=== PATIENT | female | born 1965 | race Caucasian/White ===

== ENCOUNTER → 2016-07-03 | Outpatient (CLI) | payer MEDICARE, OTHER ==
--- NOTE | 2016-07-05 11:48 | MM ---
Reason for exam: screening (asymptomatic). Last mammogram was performed 2 years and 1 month ago. History: Patient is postmenopausal. Family history of breast cancer in paternal cousin at age 58. Physical Findings: A clinical breast exam by your physician is recommended on an annual basis and results should be correlated with mammographic findings. MG 3D Screening Mammo W/Cad Bilateral CC and MLO view(s) were taken. Prior study comparison: June 02, 2014, bilateral MG screening mammo w CAD. September 26, 2012, bilateral digital screening mammo w/CAD. There are scattered fibroglandular densities. No significant changes when compared with prior studies. ASSESSMENT: Negative, BI-RAD 1 RECOMMENDATION: Routine screening mammogram of both breasts in 1 year.
== END ==
LOC: RADMAMWWP 11:22
PROVIDERS: ATTEND Family Medicine
DX: Z12.31 Encounter for screening mammogram for malignant neoplasm of breast (principal)
CPT/HCPCS: 77063; 77067; G0202

== ENCOUNTER → 2018-01-01 | Outpatient (CLI) | payer MEDICARE, OTHER ==
--- NOTE | 2018-01-01 13:33 | MR ---
EXAMINATION TYPE: MR lumbar spine wo con DATE OF EXAM: 01/01/2018 COMPARISON: HISTORY: Low back pain TECHNIQUE: Multiplanar, multisequence images of the lumbar spine were acquired. L1-L2: Normal disc appearance without desiccation. No herniation, protrusion or disc bulging. No ca nal stenosis is present. Foramina are patent bilaterally. L2-L3: Normal disc appearance without desiccation. No herniation, protrusion or disc bulging. No ca nal stenosis is present. Foramina are patent bilaterally. L3-L4: Facet arthropathy hypertrophy of ligamentum flavum causes some posterior lateral mass effect o n the thecal sac. No significant central canal stenosis. No significant foraminal encroachment. L4-L5: Broad-based posterior disc bulge causes mild anterior mass effect on the thecal sac. Facet art hropathy with hypertrophic change of the ligamentum flavum results in a trefoil appearance of the the rafa sac. Circumferential extension of endplate disc complex encroaches mildly on the foramina. L5-S1: There is facet arthropathy change present. No significant central stenosis. Broad-based utilization supervisor ior disc bulge contacts anterior thecal sac, lateral extension endplate disc complex encroaches somew hat on the neural foramina greater on the right than on the left. Lumbar segments are intact. No paraspinal masses are identified. Conus medullaris has a normal appe arance. Lumbar vertebral bodies show preserved height and alignment, there is a minimal retrolisthesi s grade 1 L5-S1. Multilevel spondylosis with minimal endplate discogenic marrow signal changes are pr esent. Some loss of disc height signal present L5-S1 and to lesser extent L3-4 compatible disc desicc ation and degenerative disc disease. Probable hemangioma noted within the left aspect of the L5 verte bral body hyperintensity noted on T1 and T2-weighted sequences. Focal lesion showing low signal on T2 -weighted sequences, possibly increased T1 noted within the left adrenal gland measuring [address] is mild spinal curvature. IMPRESSION: Degenerative disc disease and facet arthropathy. Findings within the left adrenal gland may represent an adenoma, dedicated adrenal MRI could be performed for better evaluation.
== END | disposition home or self-care (01) ==
LOC: RADMRIMAIN 12:21
PROVIDERS: ATTEND Family Medicine
DX: M51.16 Intervertebral disc disorders with radiculopathy, lumbar region (principal); M46.86 Other specified inflammatory spondylopathies, lumbar region; Z87.310 Personal history of (healed) osteoporosis fracture
CPT/HCPCS: 72148

== ENCOUNTER → 2018-02-28 | Outpatient (CLI) | payer MEDICARE, OTHER | LOC: RADMRIMAIN 11:01 | PROVIDERS: ATTEND Family Medicine | DX: Z53.9 Procedure and treatment not carried out, unspecified reason (principal) ==

== ENCOUNTER → 2018-03-31 | Outpatient (CLI) | payer MEDICARE, OTHER ==
--- NOTE | 2018-03-31 20:50 | MR ---
EXAMINATION TYPE: MR abdomen wo/w con DATE OF EXAM: 03/31/2018 COMPARISON: Correlation MRI lumbar spine 01/01/[address] 03/05/2014 HISTORY: 52-year-old female benign neoplasm of left adrenal gland Technique: Multiplanar, multisequence images of the abdomen were obtained before and after administra tion of 9.5 mL intravenous Gadavist gadolinium contrast. FINDINGS: In retrospect, a 1.4 cm low-density nodule was present on the patient's 03/05/2014 CT. Of the present exam demonstrates a 1.8 cm left adrenal nodule which drastically drops in signal on out of phase T1-w eighted sequence. Liver is enlarged measuring 20.4 cm craniocaudal. There is some signal loss of the liver as well sugg esting mild fatty infiltration. Gallbladder surgically absent. Bile duct mildly dilated to 8 mm, acceptable given postcholecystectom y status. Portal venous system is patent. Right adrenal gland, left kidney, spleen, and pancreas appear within normal limits. Subcentimeter T2 hyperintensity upper pole right kidney likely a cyst. No upper abdominal lymphadenopathy, ascites fluid, or gross bowel abnormality seen. Fatty matrix hemangioma within a lower thoracic vertebral body. Some focal strandy atelectasis or scar suggested at the base of the right lobe. IMPRESSION: 1. A 1.8 cm nodule in the left adrenal gland drastically loses signal on out of phase sequence compat ible with a benign, lipid rich adrenal adenoma. In retrospect, a 1.4 cm nodule was present on the pat ient's 2013 CT. This shows minimal increase in size over 4 years. 2. Hepatomegaly (20.4 cm) with additional signal loss suggesting mild fatty infiltration of the liver .
== END | disposition home or self-care (01) ==
LOC: RADMRIMAIN 10:04
PROVIDERS: ATTEND Family Medicine
DX: D35.02 Benign neoplasm of left adrenal gland (principal)
CPT/HCPCS: 74183; A9585

== ENCOUNTER → 2018-05-02 | Outpatient (CLI) | payer MEDICARE, OTHER ==
--- NOTE | 2018-05-02 17:03 | BD ---
EXAMINATION TYPE: Axial Bone Density DATE OF EXAM: 05/02/2018 COMPARISON: 09/26/2012 CLINICAL HISTORY: 52-year-old female postmenopausal screening Height: 64.5 IN Weight: 216 LBS FRAX RISK QUESTIONS: Secondary Osteoporosis: 5. Chronic liver disease: YES FATTY LIVER DISEASE Current Tobacco Use: YES RISK FACTORS HISTORY OF: Spine Fracture: YES L1; L3; L4 When: 2012 Family History of Osteoporosis: YES MOTHER Active: YES Diet low in dairy products/other sources of calcium: YES Postmenopausal woman: AGE 43 MEDICATIONS: Additional Medications: VIT D, TIZANIDINE, TOPROL, CHOLESTEROL MEDS, OXYCOTIN, MULTI VIT, MELATONIN, BENADRYL, NEXIUM, PREVACID EXAM MEASUREMENTS: Bone mineral densitometry was performed using the [employer] System. Bone mineral density about the R hip (g/cm2): 0.872 Bone mineral density about the L hip (g/cm2): 0.927 T Score values are as follows: -----R Neck: -1.2 -----L Neck: -0.8 -----R Total: 0.0 -----L Total: 0.5 Bone mineral density has: Decreased 11.0% since study of: 09/26/2012 Bone mineral density about the L Wrist (g/cm2): 0.666 T Score values are as follows: -----Dist. R+U: 0.8 -----Prox. R+U: -0.7 -----Radius total: -0.1 Bone mineral density BASELINE IMPRESSION: Osteopenia (T Score between -2.5 and -1). There is slightly increased risk of fracture and the patient may be considered for treatment. Re-Screen 2-5 years. NOTE: T-SCORE=SD OF THE YOUNG ADULT MEAN.
--- NOTE | 2018-05-06 07:01 | MM ---
Reason for exam: screening (asymptomatic). Last mammogram was performed 1 year and 10 months ago. History: Patient is postmenopausal. Family history of breast cancer in paternal cousin at age 58. Physical Findings: A clinical breast exam by your physician is recommended on an annual basis and results should be correlated with mammographic findings. MG 3D Screening Mammo W/Cad Bilateral CC and MLO view(s) were taken. Prior study comparison: July 03, 2016, bilateral MG 3d screening mammo w/cad. June 02, 2014, bilateral MG screening mammo w CAD. There are scattered fibroglandular densities. No suspicious abnormality. No significant changes when compared with prior studies. ASSESSMENT: Negative, BI-RAD 1 RECOMMENDATION: Routine screening mammogram of both breasts in 1 year.
== END | disposition home or self-care (01) ==
LOC: RADMAMWWP 12:53
PROVIDERS: ATTEND Family Medicine
DX: Z12.31 Encounter for screening mammogram for malignant neoplasm of breast (principal); M85.851 Other specified disorders of bone density and structure, right thigh
CPT/HCPCS: 77063; 77067; 77080

== ENCOUNTER → 2019-01-13 | Outpatient (CLI) | payer MEDICARE, OTHER ==
--- NOTE | 2019-01-13 09:02 | US ---
EXAMINATION TYPE: US abdomen complete DATE OF EXAM: 01/13/2019 COMPARISON: NONE CLINICAL HISTORY: R31.9 Hematuria,R10.811 Right Upper Quad tenderness. Hematuria. GB removed. RUQ pa in. EXAM MEASUREMENTS: Liver Length: 19.6 cm CHD: 0.6 cm Spleen: 10.3 cm Right Kidney: 9.7 x 5.7 x 4.7 cm Left Kidney: 8.9 x 4.9 x 4.7 cm Pancreas: Limited by bowel gas. Liver: appears enlarged in size and increased echogenicity. Gallbladder: Surgically absent Evidence for sonographic Monson's sign: neg CBD: Obscured by overlying bowel gas CHD: wnl Spleen: wnl Right Kidney: wnl Left Kidney: wnl Upper IVC: wnl Abd Aorta: No AAA visualized IMPRESSION: 1. Hepatomegaly. Pattern to the liver is nonspecific and be seen with hepatic steatosis. Correlate wi th liver function studies to exclude hepatitis or hepatocellular disease. 2. Postcholecystectomy.
--- NOTE | 2019-01-13 18:38 | P.STRESS ---
- Stress Test Note Stress Test Results/Findings: Exam Performed: stress echo exercise Exam Date: 01/13/19 Reason for Exam: Chest Pain Height: 5 ft 4 in Weight: 92.986 kg Protocol: Hany Stage: 2 Duration of Exercise: 4:14 Resting Heart Rate: 56 Resting Blood Pressure: 111/77 Maximum Achieved Heart Rate: 148 Maximum Achieved Blood Pressure: 156/50 85% PMHR: 140 100% PMHR: 165 METS: 5.6 Technologist Comment: Stress Test Results/Findings: This is a 53-year-old female who was admitted to the hospital with chest pain. Patient has history of smoking and hypercholesteremia. Her EKGs and cardiac enzymes are negative. Stress data: Blood pressure at rest is 111/77 with pulse rate of 56. Baseline EKG showed sinus rhythm, normal DE interval, QRS duration with mild nonspecific ST-T changes. Patient walked on the Hany protocol for about 4 minutes and 14 seconds achieving a maximal heart rate 148 with blood pressure was 156/50. EKGs taken during and after exercise did not reveal any significant changes from the baseline. Echo data: Baseline echo images showed normal wall motion and thickening. Exercise echo images showed augmentation of wall motion and thickening in all the segments. Final impression: #1. Negative stress test #2. Negative stress echo
--- NOTE | 2019-01-14 09:14 | ECHOS ---
Stress Test Results/Findings: Exam Performed: stress echo exercise Exam Date: 01/13/19 Reason for Exam: Chest Pain Height: 5 ft 4 in Weight: 92.986 kg Protocol: Hany Stage: 2 Duration of Exercise: 4:14 Resting Heart Rate: 56 Resting Blood Pressure: 111/77 Maximum Achieved Heart Rate: 148 Maximum Achieved Blood Pressure: 156/50 85% PMHR: 140 100% PMHR: 165 METS: 5.6 Technologist Comment: Stress Test Results/Findings: This is a 53-year-old female who was admitted to the hospital with chest pain. Patient has history of smoking and hypercholesteremia. Her EKGs and cardiac enzymes are negative. Stress data: Blood pressure at rest is 111/77 with pulse rate of 56. Baseline EKG showed sinus rhythm, normal NV interval, QRS duration with mild nonspecific ST-T changes. Patient walked on the Hany protocol for about 4 minutes and 14 seconds achieving a maximal heart rate 148 with blood pressure was 156/50. EKGs taken during and after exercise did not reveal any significant changes from the baseline. Echo data: Baseline echo images showed normal wall motion and thickening. Exercise echo images showed augmentation of wall motion and thickening in all the segments. Final impression: #1. Negative stress test #2. Negative stress echo MTDD
== END | disposition home or self-care (01) ==
LOC: RADUSMAIN 08:10
PROVIDERS: ATTEND Family Medicine
DX: R16.0 Hepatomegaly, not elsewhere classified (principal); R06.02 Shortness of breath; R10.811 Right upper quadrant abdominal tenderness; R31.9 Hematuria, unspecified; Z90.49 Acquired absence of other specified parts of digestive tract
CPT/HCPCS: 76700; 93351

== ENCOUNTER → 2019-10-01 | Outpatient (CLI) | payer MEDICARE, OTHER ==
--- NOTE | 2019-10-01 14:22 | MR ---
EXAMINATION TYPE: MR cervical spine wo/w con DATE OF EXAM: 10/01/2019 COMPARISON: 05/09/2015 HISTORY: 54-year-old female M47.812, spondylosis. TECHNIQUE: Multiplanar, multisequence images of the cervical spine were obtained before and after adm inistration of 9 mL intravenous Gadavist gadolinium contrast. FINDINGS: Motion artifact resulting in patchy signal intensity over the cervical spinal cord. No craniocervical junction abnormality, predental space widening, or prevertebral soft tissue swellin g. Status post C4-C7 ACDF. Mild degenerative disc disease with disc desiccation and mild posterior disc bulging at the nonfused levels. Some residual posterior osteophytic ridging at C6-C7. Ligamentum flavum thickening above the fusion at C3-C4. Alignment is maintained. No suspicious bone marrow replacement. At C2-C3, no spinal canal or foraminal stenosis. At C3-C4, hypertrophic facet arthropathy and ligamentum flavum thickening. There is gkyl-lp-[id number] narrowing of the spinal canal with dorsal cord abutment and flattening due to the thickened ligamentu m flavum. No significant foraminal stenosis. At the fused C4-C5 level, no canal or foraminal stenosis. At the fused C5-C6 level, some hyperostotic changes. Some residual mild right-sided neural foraminal narrowing. No significant spinal canal stenosis. At the fused C6-C7 level, there is residual posterior osteophytic ridging. Oicc-dw-ynqqwodp narrowing of the canal with ventral cord abutment. Hyperostotic changes of the uncovertebral joints with moder ate left and mild right neuroforaminal narrowing. At C7-T1, below the fusion, broad-based posterior disc ossific complex with facet arthropathy. No sig nificant neural foraminal stenosis. There is mild to moderate spinal canal stenosis with abutment and flattening of the ventral cord. No abnormal enhancement seen within the spinal canal. IMPRESSION: 1. Status post C4-C7 ACDF. Residual posterior osteophytic ridging at C6-C7 causing gcmm-am-xpatucbi n arrowing of the final canal with ventral cord abutment and slight flattening. Moderate left and mild right neuroforaminal stenosis at this level. 2. Mild degenerative disc disease along the nonfused levels along with scattered facet and uncoverteb ral joint arthropathy. 3. Mild to moderate narrowing of the spinal canal at C3-C4 and C7-T1 with some cord abutment and slig ht cord flattening on one side but no cord compression. Changes show slight progression from 05/09/2015 . 4. Some patchy artifacts project over the cervical spinal cord. No abnormal enhancement in the spinal canal or definite myelopathic cord signal change.
== END | disposition home or self-care (01) ==
LOC: RADMRIMAIN 10:32
PROVIDERS: ATTEND Pain Medicine Interventional Pain Medicine
DX: M48.02 Spinal stenosis, cervical region (principal); M50.30 Other cervical disc degeneration, unspecified cervical region; M47.812 Spondylosis without myelopathy or radiculopathy, cervical region; Z98.1 Arthrodesis status
CPT/HCPCS: 72156; A9585

== ENCOUNTER → 2020-05-23 | Outpatient (CLI) | payer MEDICARE, OTHER ==
--- NOTE | 2020-05-24 11:56 | MM ---
Reason for exam: screening (asymptomatic). Last mammogram was performed 2 years and 1 month ago. History: Patient is postmenopausal. Family history of breast cancer in paternal cousin at age 58. Physical Findings: A clinical breast exam by your physician is recommended on an annual basis and results should be correlated with mammographic findings. MG Screening Mammo w CAD Bilateral CC and MLO view(s) were taken. Prior study comparison: May 02, 2018, bilateral MG 3d screening mammo w/cad. July 03, 2016, bilateral MG 3d screening mammo w/cad. The breast tissue is almost entirely fat. No significant changes when compared with prior studies. ASSESSMENT: Benign, BI-RAD 2 RECOMMENDATION: Routine screening mammogram of both breasts in 1 year.
== END | disposition home or self-care (01) ==
LOC: RADMAMWWP 10:36
PROVIDERS: ATTEND Family Medicine
DX: Z12.31 Encounter for screening mammogram for malignant neoplasm of breast (principal)
CPT/HCPCS: 77067

== ENCOUNTER → 2021-09-11 | Outpatient (CLI) | payer MEDICARE, OTHER ==
--- NOTE | 2021-09-11 11:52 | BD ---
EXAMINATION TYPE: Axial Bone Density DATE OF EXAM: 09/11/2021 COMPARISON: NONE CLINICAL HISTORY: 56 year old Female. ICD-10 CODE: Z78.0 ASYMPTOMATIC MENOPAUSAL STA Height: Weight: FRAX RISK QUESTIONS: Alcohol (3 or more units per day): no Family History (Parent hip fracture): no Glucocorticoids (More than 3mos): (Ex: prednisone, prednisolone, methylprednisolone, dexamethasone, and hydrocortisone). History of Fracture in Adulthood: yes Secondary Osteoporosis: 1. Type 1 Diabetes: no 2. Hyperthyroidism: no 3. Menopause before 45: no 4. Malnutrition: no 5. Chronic liver disease: no Rheumatoid Arthritis: no Current Tobacco Use: yes RISK FACTORS HISTORY OF: Surgery to Spine/Hip(right/left)/Wrist (right/left): no Family History of Osteoporosis: yes Active: yes Diet low in dairy products/other sources of calcium: yes Postmenopausal woman: yes Lost more than 2 inches in height since high school: no MEDICATIONS: Prednisone or other steroids: steroid injections-neck, back, wrist, shoulder Osteoporosis Medications:boniva How Long: since 2018 Additional Medications: flonase, diabetic meds Additional History: EXAM MEASUREMENTS: Bone mineral densitometry was performed using the [employer] System. Bone mineral density about the R hip (g/cm2): 0.864 Bone mineral density about the L hip (g/cm2): 0.898 T Score values are as follows: -----R Neck: -1.3 -----L Neck: -1.0 -----R Total: -0.1 -----L Total: 0.2 Bone mineral density has: decreased -2.3 % since study of: 05.02.2018 Bone mineral density about the L Wrist (g/cm2): 0.672 T Score values are as follows: -----Dist. R+U: 0.9 -----Prox. R+U: -0.9 -----Radius total: 0.0 Bone mineral density has: decreased -2.2 % since study of: 05.02.2018 FRAX%s: The graph provided illustrates a 4.9% chance for a major osteoporotic fx and a 0.9% chance fo r the hips probability for fx in 10 years time. IMPRESSION: No evidence for osteoporosis or osteopenia NOTE: T-SCORE=SD OF THE YOUNG ADULT MEAN.
--- NOTE | 2021-09-12 20:06 | MM ---
Reason for Exam: Screening (asymptomatic). Last mammogram was performed 1 year(s) and 4 month(s) ago. Patient History: Menarche at age 14. First Full-Term at age 21. Right ovary removed at age 29. Postmenopausal. Patient has history of breast feeding. Paternal cousin had breast cancer, age 58. Risk Values: Mariajose 5 year model risk: 1.1%. NCI Lifetime model risk: 6.3%. Prior Study Comparison: 07/03/2016 Bilateral Screening Mammogram, [facility]. 05/02/2018 Bilateral Screening Mammogram, [facility]. 05/23/2020 Bilateral Screening Mammogram, [facility]. Tissue Density: There are scattered fibroglandular densities. Findings: Analyzed By CAD. Unchanged low axillary tail lymph node on the left. No significant change from prior exams. Overall Assessment: Negative, BI-RAD 1 Management: Screening Mammogram of both breasts in 1 year. 1. A clinical breast exam by your physician is recommended on an annual basis and results should be correlated with mammographic findings. 2. Patient should continue monthly self breast exams. 3. This exam should not preclude additional follow-up of suspicious palpable abnormalities. Electronically signed and approved by: Steffanie Luis M.D. Radiologist
== END | disposition home or self-care (01) ==
LOC: RADMAMWWP 08:34
PROVIDERS: ATTEND Family Medicine
DX: Z12.31 Encounter for screening mammogram for malignant neoplasm of breast (principal); Z78.0 Asymptomatic menopausal state; Z80.3 Family history of malignant neoplasm of breast
CPT/HCPCS: 77063; 77067; 77080

== ENCOUNTER → 2022-03-30 | Outpatient (CLI) | payer MEDICARE, OTHER ==
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
== END | disposition home or self-care (01) ==
LOC: RADMRIMAIN 14:32
PROVIDERS: ATTEND Physician Assistant Medical
DX: M16.0 Bilateral primary osteoarthritis of hip (principal)

== ENCOUNTER → 2022-11-22 | Outpatient (CLI) | payer MEDICARE, OTHER ==
--- NOTE | 2022-11-23 10:53 | MM ---
Reason for Exam: Screening (asymptomatic). Last mammogram was performed 1 year(s) and 2 month(s) ago. Patient History: Menarche at age 14. First Full-Term at age 21. Right ovary removed at age 29. Postmenopausal. Patient has history of breast feeding. Paternal cousin had breast cancer, age 58. Risk Values: Mariajose 5 year model risk: 1.1%. NCI Lifetime model risk: 6.2%. Prior Study Comparison: 05/02/2018 Bilateral Screening Mammogram, [facility]. 05/23/2020 Bilateral Screening Mammogram, [facility]. 09/11/2021 Bilateral MG 3D screening mammo w/cad, [facility]. Tissue Density: There are scattered fibroglandular densities. Findings: Analyzed By CAD. There is no suspicious group of microcalcifications or new suspicious mass in either breast. Overall Assessment: Negative, BI-RAD 1 Management: Screening Mammogram of both breasts in [address] [facility] will attempt to contact patient to return for supplemental views and ultrasound if indicated. Patient should continue monthly self-breast exams. A clinical breast exam by your physician is recommended on an annual basis. This exam should not preclude additional follow-up of suspicious palpable abnormalities. Note on Mariajose scores and lifetime risk: 1. A Mariajose score greater than 3% is considered moderate risk. If this is the case, consider specialist referral to assess eligibility for a risk reducing agent. 2. If overall lifetime risk for the development of breast cancer is 20% or higher, the patient may qualify for future screening with alternating mammogram and breast MRI. Electronically signed and approved by: Owen Arndt DO
== END | disposition home or self-care (01) ==
LOC: RADMAMWWP 08:54
PROVIDERS: ATTEND Family Medicine
DX: Z12.31 Encounter for screening mammogram for malignant neoplasm of breast (principal); Z78.0 Asymptomatic menopausal state; Z80.3 Family history of malignant neoplasm of breast
CPT/HCPCS: 77063; 77067

== ENCOUNTER → 2023-04-16 | Outpatient (CLI) | payer MEDICARE, OTHER ==
--- NOTE | 2023-04-16 13:06 | CT ---
EXAMINATION TYPE: CT sinus wo con DATE OF EXAM: 04/16/2023 COMPARISON: None HISTORY: CHRONIC SINUSITIS CT DLP: 654.8 mGycm. Automated Exposure Control for Dose Reduction was Utilized. TECHNIQUE: CT scan of the sinuses is performed without contrast, axial images are obtained, coronal r eformatted images are also reviewed. FINDINGS: The paranasal sinuses including the frontal, ethmoid, sphenoid, and maxillary sinuses bila terally are well-aerated a moderate-sized mucous retention cyst or polyp involving the right maxillar y sinus with adjacent mucosal thickening. No air-fluid levels to suggest acute sinusitis. The ostiom eatal complex is patent bilaterally on the coronal images. Visualized portion of mastoid air cells show no abnormal opacification. The globes are intact bilate rally. Epidural and subcutaneous calcifications incidentally noted. IMPRESSION: Mild chronic right maxillary sinusitis.
== END | disposition home or self-care (01) ==
LOC: RADCTMAIN 12:28
PROVIDERS: ATTEND Family Medicine
DX: J32.0 Chronic maxillary sinusitis (principal); J01.90 Acute sinusitis, unspecified
CPT/HCPCS: 70486

== ENCOUNTER → 2024-04-14 | Outpatient (CLI) | payer MEDICARE, OTHER ==
--- NOTE | 2024-04-14 10:32 | BD ---
EXAMINATION TYPE: Axial Bone Density DATE OF EXAM: 04/14/2024 CLINICAL HISTORY: 58 years old Female. ICD-10 CODE: Z78.0 ASYMP JASPAL STATE , Additional History: Height: 65 Weight: 220.7 FRAX RISK QUESTIONS: Alcohol (3 or more units per day): no Family History (Parent hip fracture): no Glucocorticoids (More than 3mos): no (Ex: prednisone, prednisolone, methylprednisolone, dexamethasone, and hydrocortisone). History of Fracture in Adulthood: LS-Spine Secondary Osteoporosis: 1. Type 1 Diabetes: no 2. Hyperthyroidism: no 3. Menopause before 45: yes 4. Malnutrition: no 5. Chronic liver disease: no Rheumatoid Arthritis: no Current Tobacco Use: no RISK FACTORS HISTORY OF: Hip Fracture (Right/Left): no Spine Fracture: L1, L3, L4 When: 10 years ago History of Wrist Fracture: no Surgery to Spine/Hip(right/left)/Wrist (right/left): no hardware MEDICATIONS: Thyroid Medications: no Osteoporosis Medications: Boniva How Long: past 10 years EXAM MEASUREMENTS: Bone mineral density about the R hip (g/cm2): 1.003 Bone mineral density about the L hip (g/cm2): 1.016 T Score values are as follows: -----R Neck: -1.1 -----L Neck: -1.4 -----R Total: 0.0 -----L Total: 0.1 Z Score values are as follows: -----R Neck: -0.6 -----L Neck: -0.9 -----R Total: 0.1 -----L Total: 0.2 Bone mineral density has: decreased -0.7 % since study of: 09/11/2021 Bone mineral density about the L Wrist (g/cm2): 0.626 T Score values are as follows: -----Dist. R+U: 0.2 -----Prox. R+U: -1.0 -----Radius total: -0.8 Z Score values are as follows: -----Dist. R+U: 1.2 -----Prox. R+U: 0.0 -----Radius total: 0.2 Bone mineral density has: decreased -1.1 % since study of: 09/11/2021 FRAX%s: The graph provided illustrates a 5.0% chance for a major osteoporotic fx and a 0.7% chance fo r the hips probability for fx in 10 years time. IMPRESSION: Osteopenia (T Score between -2.5 and -1) remains present. There is slightly increased risk of fracture and the patient may be considered for treatment. Re-Screen 2-5 years. NOTE: T-SCORE=SD OF THE YOUNG ADULT MEAN. [facility], , 04/14/2024 10:29 AM
--- NOTE | 2024-04-14 10:39 | MM ---
Reason for Exam: Screening (asymptomatic). Last mammogram was performed 1 year(s) and 5 month(s) ago. Patient History: Menarche at age 14. First Full-Term at age 21. Right ovary removed at age 29. Postmenopausal. Patient has history of breast feeding. Hormonal Contraceptives, from age 15 until age 33. Paternal cousin had breast cancer, age 58. Risk Values: Mariajose 5 year model risk: 1.2%. NCI Lifetime model risk: 6.0%. Prior Study Comparison: 05/23/2020 Bilateral Screening Mammogram, [facility]. 09/11/2021 Bilateral MG 3D screening mammo w/cad, [facility]. 11/22/2022 Bilateral MG 3D screening mammo w/cad, [facility]. Tissue Density: There are scattered areas of fibroglandular density. Findings: Analyzed By CAD. There is no suspicious new group of microcalcifications or new suspicious mass in either breast. Overall Assessment: Negative, BI-RAD 1 Management: Screening Mammogram of both breasts in 1 year. . Patient should continue monthly self-breast exams. A clinical breast exam by your physician is recommended on an annual basis. This exam should not preclude additional follow-up of suspicious palpable abnormalities. Note on Mariajose scores and lifetime risk: 1. A Mariajose score greater than 3% is considered moderate risk. If this is the case, consider specialist referral to assess eligibility for a risk reducing agent. 2. If overall lifetime risk for the development of breast cancer is 20% or higher, the patient may qualify for future screening with alternating mammogram and breast MRI. [facility], , 04/14/2024 10:36 AM. Electronically signed and approved by: Dalton Vaughn M.D.
== END | disposition home or self-care (01) ==
LOC: RADMAMWWP 09:10
PROVIDERS: ATTEND Family Medicine
DX: Z12.31 Encounter for screening mammogram for malignant neoplasm of breast (principal); Z78.0 Asymptomatic menopausal state; Z90.721 Acquired absence of ovaries, unilateral; Z80.3 Family history of malignant neoplasm of breast; R92.323 Mammographic fibroglandular density, bilateral breasts; M85.89 Other specified disorders of bone density and structure, multiple sites
CPT/HCPCS: 77063; 77067; 77080

== ENCOUNTER → 2024-05-27 | Outpatient (CLI) | payer MEDICARE, OTHER ==
--- NOTE | 2024-05-27 11:17 | MR ---
EXAMINATION TYPE: MR lumbar spine wo con DATE OF EXAM: 05/27/2024 9:51 AM COMPARISON: None. CLINICAL INDICATION: Female, 58 years old with history of M45.062 spinal stenosis, Mid back pain, hx of injuries. TECHNIQUE: Multiplanar, multisequence images of the lumbar spine were acquired. IV Contrast: mL (None, if empty) FINDINGS: Cord ends at the L1-L2 level. L5-S1: Minimal disc bulges anterior thecal sac contact. No AP spinal canal stenosis is present. Facet hypertrophy and ligamentum flavum laxity is posterior lateral thecal sac compression. Moderate righ t foraminal narrowing is present. L4-L5: Broad-based disc bulge is present. Facet hypertrophy and ligamentum flavum laxity of posterior lateral thecal sac compression contributing to spinal canal stenosis. AP spinal canal narrowing and 0.7 cm is present. Mild bilateral foraminal narrowing is present. L3-L4: No focal disc herniation or significant disc bulge. No spinal canal stenosis. Neural foramen are patent. Mild facet hypertrophy and ligamentum flavum laxity is posterior lateral thecal sac com pression. No stenosis is evident. L2-L3: No focal disc herniation or significant disc bulge. No spinal canal stenosis. Neural foramen are patent. L1-L2: No focal disc herniation or significant disc bulge. No spinal canal stenosis. Neural foramen are patent. T12-L1: No focal disc herniation or significant disc bulge. No spinal canal stenosis. Neural forame n are patent. IMPRESSION: 1. Spinal canal stenosis L4-5 predominantly due to facet hypertrophy and ligamentum flavum laxity wit h some mild disc bulging present 2. Mild disc bulging L5-S1 without spinal canal stenosis. [facility], , 05/27/2024 11:14 AM
== END | disposition home or self-care (01) ==
LOC: RADMRIMAIN 08:57
PROVIDERS: ATTEND Pain Medicine Interventional Pain Medicine
DX: M48.062 Spinal stenosis, lumbar region with neurogenic claudication (principal); M51.370 Other intervertebral disc degeneration, lumbosacral region with discogenic back pain only; M47.816 Spondylosis without myelopathy or radiculopathy, lumbar region
CPT/HCPCS: 72148